=== PATIENT | male | born 1950 | race Two or more races ===

== ENCOUNTER 2023-08-29 13:19 | Emergency (ER) | payer OTHER ==
[~2023-08-29] VITALS: Ht 180.3 cm; Wt 124.7 kg
[2023-08-29] MEDS ORDERED: MONTELUKAST SODI4 M1 (14:36)
[2023-08-29] MEDS ORDERED: ALL DAY ALLERGY10 M3 (14:37)
[2023-08-29] MEDS ORDERED: LISINOPRIL20 MG PO (14:38)
[2023-08-29] MEDS ORDERED: TRESIBA FL200 UNIT/1 SQ (14:38)
[2023-08-29] MEDS ORDERED: AMLODIPINE-OLM1 EAC2 (14:38)
[2023-08-29] MEDS ORDERED: hydrALAZINE HCL 25 MG TABLET PO ONE (15:45)
[2023-08-29 17:01] LABS: HEMATOCRIT 41.5 % (39.0-48.0); HEMOGLOBIN 14.1 g/dL (13-16.00); MEAN CELL VOLUME 86.7 fL (80.0-100.00); MEAN CORPUSCULAR HEMOGLOBIN 29.5 pg (27.00-32.0); PLATELET COUNT 233 K/uL (150-450); RED BLOOD COUNT 4.78 M/uL (4.00-6.00)
[2023-08-29 17:22] LABS: CALCIUM 9.1 mg/dL (8.5-10.1); CREATININE SERUM 1.38 mg/dL (0.70-1.30); GFR 50.23; POTASSIUM 3.97 mEq/L (3.5-5.1)
[2023-08-29 17:38] LABS: PH,URINE 5.5 (5.0-8.0); URINE APPEARANCE Clear; URINE BILIRRUBIN Negative (NEGATIVE); URINE BLOOD Negative; URINE COLOR Yellow; URINE GLUCOSE Negative (NEGATIVE); URINE LEUKOCYTE Negative; URINE NITRATE Negative; URINE PROTEIN Negative (NEGATIVE); URINE UROBILINOGEN 0.2 E.U./dl
[2023-08-29 17:40] LABS: URINE BACTERIA 3.7 uL (0.0-1933); URINE EPITHELIAL CELLS 0.6 uL (0.0-38.8); URINE RBC 0.6 uL (0.0-20.8); URINE WBC 1.2 uL (0.0-23.2)
== END 2023-08-29 19:15 | disposition home or self-care (01) ==
LOC: ER 13:20
PROVIDERS: General Practice
DX: I10 Essential (primary) hypertension (principal); E11.9 Type 2 diabetes mellitus without complications; Z79.4 Long term (current) use of insulin; Z88.8 Allergy status to other drugs, medicaments and biological substances; Z20.822 Contact with and (suspected) exposure to COVID-19